=== PATIENT | male | born 1935 | race Caucasian/White ===

== ENCOUNTER 2018-01-05 13:17 | Inpatient (IN) | payer MEDICARE ==
--- NOTE | 2018-01-05 13:32 | ED ---
General Adult HPI - General Chief complaint: Shortness of Breath Stated complaint: SOB Time Seen by Provider: 01/05/18 13:19 Source: patient, EMS, RN notes reviewed, old records reviewed (Transfer records reviewed from [facility].) Mode of arrival: EMS Limitations: no limitations - History of Present Illness Initial comments: Patient is a pleasant 82-year-old male presenting to the emergency Department as a transfer from [facility]. Patient was diagnosed there with CHF. 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 Symptoms do worsen with exertion. Patient states he may have been worse lying down as well. Patient denies ever having any chest discomfort. Patient states he was a little bit sweaty this morning. No fevers. No leg pain or leg swelling. Patient is unclear if there is any previous history of congestive heart failure. - Related Data Allergies Allergy/AdvReac Type Severity Reaction Status Date / Time No Known Allergies Allergy Verified 01/05/18 13:22 Review of Systems ROS Statement: Those systems with pertinent positive or pertinent negative responses have been documented in the HPI. ROS Other: All systems not noted in ROS Statement are negative. Constitutional: Denies: fever Eyes: Denies: eye pain ENT: Denies: ear pain Respiratory: Reports: cough, dyspnea Cardiovascular: Denies: chest pain Endocrine: Denies: fatigue Gastrointestinal: Denies: abdominal pain Genitourinary: Denies: dysuria Musculoskeletal: Denies: back pain Skin: Denies: rash Neurological: Denies: weakness Past Medical History Past Medical History: COPD, Hyperlipidemia, Hypertension, Osteoarthritis (OA) History of Any Multi-Drug Resistant Organisms: None Reported Past Surgical History: Appendectomy, Hernia Repair, Pacemaker Additional Past Surgical History / Comment(s): lithotripsy Past Psychological History: No Psychological Hx Reported Smoking Status: Former smoker Past Alcohol Use History: None Reported Past Drug Use History: None Reported General Exam Limitations: no limitations General appearance: alert, in no apparent distress Head exam: Present: atraumatic Eye exam: Present: normal appearance, PERRL ENT exam: Present: normal oropharynx Neck exam: Present: normal inspection Respiratory exam: Present: rales (Bilateral bases) Cardiovascular Exam: Present: regular rate, normal rhythm, systolic murmur GI/Abdominal exam: Present: soft. Absent: tenderness Extremities exam: Present: normal inspection, other (Left leg brace). Absent: pedal edema, calf tenderness Neurological exam: Present: alert Psychiatric exam: Present: normal affect, normal mood Skin exam: Present: normal color Course Vital Signs 01/05/18 01/05/18 13:18 14:03 Temperature 98.2 F Pulse Rate 82 66 Respiratory 18 18 Rate Blood Pressure 148/86 126/73 O2 Sat by Pulse 95 94 L Oximetry EKG Findings - EKG Comments: EKG Findings:: Paced rhythm at 75. QRS to 30. QT 518. QTC 578. Left axis. Wide-complex QRS. Nonspecific ST-T. Medical Decision Making - Medical Decision Making Patient was updated on results and plan. Case was discussed in detail with Dr. bah, who will admit for hospital call. - Radiology Data Interpreted by me: Chest x-ray reviewed from [facility] does show cardiomegaly and some interstitial increased markings. Disposition Clinical Impression: Congestive heart failure Disposition: ADMITTED IP TO THIS HOSP Is patient prescribed a controlled substance at d/c from ED?: No Referrals: Zohaib Porter MD [Primary Care Provider] - 1-2 days Decision Time: 14:07
[2018-01-05] MEDS ORDERED: ASPIRIN 325 MG TAB PO STA (14:08)
[2018-01-05] MEDS ORDERED: FUROSEMIDE 10 MG/ML 4 ML VIAL IV SCH (14:15)
[2018-01-05] MEDS ORDERED: HYDROcodone/APAP 7.5-325MG 1 EACH TAB PO PRN (15:32)
[2018-01-05] MEDS ORDERED: DEXTROMETHORPHAN PO PRN (15:32)
[2018-01-05] MEDS ORDERED: [UNRECOGNIZED DRUG - OTHER] PO PRN (15:32)
[2018-01-05] MEDS ORDERED: ACETAMINOPHEN PO PRN (15:32)
[2018-01-05] MEDS ORDERED: ALBUTEROL NEBULIZED 2.5 MG/3 ML INHALATION PRN (15:32)
[2018-01-05] MEDS ORDERED: DOXYLAMINE PO PRN (15:32)
[2018-01-05] MEDS ORDERED: PHENYLEPHRINE PO PRN (15:32)
[2018-01-05] MEDS ORDERED: NALOXONE 0.4 MG/ML 1 ML VIAL IV PRN (15:33)
--- NOTE | 2018-01-05 15:45 | P.HPIM ---
History of Present Illness H&P Date: 01/05/18 Chief Complaint: Flulike symptoms 82-year-old male presented to the emergency Department as a transfer from [facility] because of new onset CHF. 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 Symptoms do worsen with exertion as well as lying down. Patient denied ever having any chest discomfort. He stated he mainly felt like it was a flu as he was having nasal congestion, sore throat, cough as well as diaphoresis. No fevers. No leg pain or leg swelling. He felt slightly nauseous this morning but no vomiting. No abdominal pain, diarrhea. No urinary symptoms. At [place] he was worked up with a chest x-ray that showed pulmonary vascular congestion/pulmonary edema, his troponin was slightly elevated at 0.07 , his EKG was paced, and proBNP was elevated at 2100. He was given 324 mg of aspirin as well as Nitropaste and transferred to [facility]. Review of Systems 12 point review of system performed, negative except HPI Past Medical History Past Medical History: COPD, Hyperlipidemia, Hypertension, Osteoarthritis (OA) History of Any Multi-Drug Resistant Organisms: None Reported Past Surgical History: Appendectomy, Hernia Repair, Pacemaker Additional Past Surgical History / Comment(s): lithotripsy Past Psychological History: No Psychological Hx Reported Smoking Status: Former smoker Past Alcohol Use History: None Reported Past Drug Use History: None Reported Medications and Allergies Home Medications Medication Instructions Recorded Confirmed Type Acetaminophen [Tylenol Arthritis] 650 mg PO HS 01/05/18 01/05/18 History Albuterol Inhaler [Ventolin Hfa 2 puff INHALATION RT-Q6H PRN 01/05/18 01/05/18 History Inhaler] Aspirin EC [Ecotrin Low Dose] 81 mg PO DAILY 01/05/18 01/05/18 History Atorvastatin [Lipitor] 10 mg PO DAILY 01/05/18 01/05/18 History Carvedilol [Coreg] 6.25 mg PO BID 01/05/18 01/05/18 History Dm/PE/Acetaminophen/Doxylamine 30 ml PO Q6H PRN 01/05/18 01/05/18 History [Vicks Nyquil Severe Cold-Flu] HYDROcodone/APAP 7.5-325MG [[place] 1 tab PO Q6HR PRN 01/05/18 01/05/18 History 7.5-325] Tiotropium Ollie [Spiriva 1 spray INHALATION RT-DAILY 01/05/18 01/05/18 History Respimat] Allergies Allergy/AdvReac Type Severity Reaction Status Date / Time No Known Allergies Allergy Verified 01/05/18 14:32 Physical Exam Vitals: Vital Signs Temp Pulse Resp BP Pulse Ox 01/05/18 14:03 66 18 126/73 94 L 01/05/18 13:18 98.2 F 82 18 148/86 95 Intake and Output 01/05/18 01/05/18 01/05/18 06:59 14:59 22:59 Other: Weight 89.857 kg Constitutional: No acute distress, conversant, pleasant Eyes:Anicteric sclerae, moist conjunctiva, no lid-lag, PERRLA, ENMT: Oropharynx clear, no erythema, exudates Neck: Supple, FROM, no masses, or JVD, No carotid bruits, No thyromegaly Lungs: Bibasilar crackles, Clear to percussion, Normal respiratory effort, no accessory muscle use Cardiovascular: Heart regular in rate and rhythm, No murmurs, gallops, or rubs, No peripheral edema Abdominal: Soft, Nontender, no guarding, rebound or rigidity, Normoactive bowel sounds, No hepatomegaly, No splenomegaly, No palpable mass Skin: Normal temperature, tone, texture, turgor, no induration, No subcutaneous nodules, No rash, lesions, No ulcers Extremities: No digital cyanosis, No clubbing, Pedal pulses intact and symmetrical, Radial pulses intact and symmetrical, No calf tenderness Psychiatric: Alert and oriented to person, place and time, appropriate affect, intact judgement Neuro: Muscles Strength 5/5 in all 4 extremities, Sensation to light touch grossly present throughout, Cranial nerves II-XII grossly intact, no focal sensory deficits Assessment and Plan Plan: Acute exacerbation of congestive heart failure Unknown type Echocardiogram Cycle troponins Lasix 20 mg IV twice a day Continue Coreg, consider starting SINAN inhibitor Cardiology consult COPD, Hyperlipidemia, Hypertension, Osteoarthritis (OA): All stable Resume home medications DVT prophylaxis Lovenox subcu
--- NOTE | 2018-01-05 16:40 | P.CRDCN ---
History of Present Illness Consult date: 01/05/18 Chief complaint: SOB History of present illness: This is a pleasant 82-year-old gentleman who was transferred from [facility] to [facility] for further evaluation and management of ingested heart failure. The patient presented to the emergency room at [facility] complaining of shortness of breath. The patient stated that the shortness of breath started about 2 days ago. He described exertional dyspnea. No orthopnea or PND. No symptoms of chest pain or chest discomfort, dizziness or lightheadedness, feeling of heart racing or fluttering, or syncope. The patient denies having any fever or chills, but the patient does have nasal congestion. The patient did not have any bilateral lower extremities edema. 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 Beside that he does have hypertension and dyslipidemia. No coronary artery disease or coronary artery vascularization. No history of arrhythmia. At [place] he was worked up with a chest x-ray that showed pulmonary vascular congestion/pulmonary edema, his troponin was slightly elevated at 0.07 , his EKG showed ventricular paced, and proBNP was elevated at 2100. Past Medical History Past Medical History: COPD, Hyperlipidemia, Hypertension, Osteoarthritis (OA) History of Any Multi-Drug Resistant Organisms: None Reported Past Surgical History: Appendectomy, Hernia Repair, Pacemaker Additional Past Surgical History / Comment(s): lithotripsy Past Psychological History: No Psychological Hx Reported Smoking Status: Former smoker Past Alcohol Use History: None Reported Past Drug Use History: None Reported Medications and Allergies Home Medications Medication Instructions Recorded Confirmed Type Acetaminophen [Tylenol Arthritis] 650 mg PO HS 01/05/18 01/05/18 History Albuterol Inhaler [Ventolin Hfa 2 puff INHALATION RT-Q6H PRN 01/05/18 01/05/18 History Inhaler] Aspirin EC [Ecotrin Low Dose] 81 mg PO DAILY 01/05/18 01/05/18 History Atorvastatin [Lipitor] 10 mg PO DAILY 01/05/18 01/05/18 History Carvedilol [Coreg] 6.25 mg PO BID 01/05/18 01/05/18 History Dm/PE/Acetaminophen/Doxylamine 30 ml PO Q6H PRN 01/05/18 01/05/18 History [Vicks Nyquil Severe Cold-Flu] HYDROcodone/APAP 7.5-325MG [[place] 1 tab PO Q6HR PRN 01/05/18 01/05/18 History 7.5-325] Tiotropium [place] [Spiriva 1 spray INHALATION RT-DAILY 01/05/18 01/05/18 History Respimat] Allergies Allergy/AdvReac Type Severity Reaction Status Date / Time No Known Allergies Allergy Verified 01/05/18 14:32 Physical Exam Vitals: Vital Signs Temp Pulse Resp BP Pulse Ox 01/05/18 16:17 61 18 142/79 94 L 01/05/18 14:03 66 18 126/73 94 L 01/05/18 13:18 98.2 F 82 18 148/86 95 Intake and Output 01/05/18 01/05/18 01/05/18 06:59 14:59 22:59 Output Total 250 Balance -250 Output: Urine 250 Other: # Voids 1 Weight 89.857 kg - Constitutional General appearance: mild distress - Respiratory Respiratory: bilateral: rales - Cardiovascular Rhythm: regular Heart sounds: normal: S1, S2 Results Current Medications Generic Name Dose Route Start Last Admin Trade Name Freq PRN Reason Stop Dose Admin Hydrocodone Bitart/Acetaminophen 1 each 01/05/18 15:32 [place] 7.5-325 PO Q6HR PRN Pain Albuterol Sulfate 2 puff 01/05/18 15:32 Ventolin Hfa Inhaler INHALATION RT-Q6H PRN Shortness Of Breath Aspirin 325 mg 01/06/18 09:00 Aspirin PO DAILY [facility] Atorvastatin Calcium 10 mg 01/06/18 09:00 Lipitor PO DAILY [facility] Carvedilol 6.25 mg 01/05/18 21:00 Coreg PO BID [facility] Enoxaparin Sodium 40 mg 01/06/18 09:00 Lovenox SQ DAILY [facility] Furosemide 20 mg 01/05/18 21:00 Lasix IV Q12HR [facility] Naloxone HCl 0.2 mg 01/05/18 15:33 Narcan IV Q2M PRN Opioid Reversal Nitroglycerin 1 inch 01/05/18 18:00 Nitro-Bid Oint TOPICAL QID LUKASZ Non-Formulary Medication 650 mg 01/05/18 21:00 Acetaminophen [Tylenol Arthritis] PO HS [facility] Non-Formulary Medication 30 ml 01/05/18 15:32 Dm/Pe/Acetaminophen/Doxylamine [Vicks Nyquil Severe Cold-Flu] PO Q6H PRN Cold Symptoms Non-Formulary Medication 1 spray 01/06/18 08:00 Tiotropium [place] [Spiriva Respimat] INHALATION RT-DAILY LUKASZ Sodium Chloride 10 ml 01/05/18 21:00 Saline Flush IV BID LUKASZ Intake and Output 01/05/18 01/05/18 01/05/18 06:59 14:59 22:59 Output Total 250 Balance -250 Output: Urine 250 Other: # Voids 1 Weight 89.857 kg Patient Weight 01/06/18 06:59 Weight 89.857 kg Assessment and Plan Assessment: Assessment #1 congestive heart failure exacerbation and known if it's due to systolic or diastole dysfunction at this point. #2 mildly abnormal cardiac enzymes. The patient did not have any symptoms of chest pain or chest discomfort. #3 status post permanent pacemaker implantation #4 hypertension #5 dyslipidemia Plan #1 agree to keep the patient on the current dose of Lasix IV. #2 monitor the kidney function and electrolytes and weigh daily #3 we'll obtain an echocardiogram was Doppler to assess the LV function #4 obtain serial cardiac enzymes #5 acute coronary syndrome to be ruled out as an etiology for the congestive heart failure #6 follow-up with the patient. Thank you for allowing us participate in his care and we'll continue following up with the patient
[2018-01-05 18:56] VITALS: BMI 23.5
[2018-01-05] MEDS: NITROGLYCERIN OINT 1 INCH/GM PACKET TOPICAL SCH ×2 (20:30→20:39)
[2018-01-05] MEDS: ACETAMINOPHEN TAB 325 MG TAB PO SCH (20:38)
[2018-01-05] MEDS: CARVEDILOL 6.25 MG TAB PO SCH (20:38)
[2018-01-05] MEDS: FUROSEMIDE 10 MG/ML 2 ML VIAL IV SCH (20:38)
[2018-01-05] MEDS: ENOXAPARIN 40 MG/0.4 ML SYRINGE SQ STA ×2 (20:39→20:43)
[2018-01-06 06:03] LABS: Basophils % (A) 1 %; Eosinophils # (A) 0.2 k/uL (0-0.7); Eosinophils % (A) 3 %; HCT 43.2 % (39.0-53.0); HGB 14.3 gm/dL (13.0-17.5); Lymphocytes # (A) 0.6 k/uL (1.0-4.8); Lymphocytes % (A) 10 %; MCH 30.9 pg (25.0-35.0); MCV 93.7 fL (80.0-100.0); Mean Platelet Volume 7.7; Monocytes # (A) 0.5 k/uL (0-1.0); Monocytes % (A) 7 %; Neutrophils # (A) 4.8 k/uL (1.3-7.7); Neutrophils % (A) 77 %; Platelet Count 171 k/uL (150-450); RBC 4.61 m/uL (4.30-5.90); RDW 13.1 % (11.5-15.5); WBC 6.2 k/uL (3.8-10.6)
[2018-01-06 06:19] LABS: Anion Gap 7 mmol/L; Blood Urea Nitrogen 25 mg/dL (9-20); Calcium 8.4 mg/dL (8.4-10.2); Carbon Dioxide 28 mmol/L (22-30); Chloride 106 mmol/L (98-107); Glucose 104 mg/dL (74-99); Potassium 4.2 mmol/L (3.5-5.1); Sodium 141 mmol/L (137-145)
[2018-01-06] MEDS: IPRATROPIUM 0.5 MG/2.5 ML NEBU INHALATION SCH ×4 (07:40→19:05)
[2018-01-06] MEDS: ENOXAPARIN 40 MG/0.4 ML SYRINGE SQ SCH (08:32)
[2018-01-06] MEDS: NITROGLYCERIN OINT 1 INCH/GM PACKET TOPICAL SCH ×4 (08:33→20:05)
[2018-01-06] MEDS: CARVEDILOL 6.25 MG TAB PO SCH ×2 (08:33→20:05)
[2018-01-06] MEDS: FUROSEMIDE 10 MG/ML 2 ML VIAL IV SCH ×2 (08:33→20:05)
[2018-01-06] MEDS: ATORVASTATIN 10 MG TAB PO SCH (08:33)
[2018-01-06] MEDS ORDERED: ASPIRIN 325 MG TAB PO SCH (09:00)
--- NOTE | 2018-01-06 10:57 | P.PN ---
Subjective Progress Note Date: 01/06/18 Principal diagnosis: CHF Feeling better, no chest pain or shortness of breath. Objective - Vital Signs Vital signs: Vital Signs Temp 96.3 F L 01/06/18 08:31 Pulse 60 01/06/18 08:31 Resp 18 01/06/18 08:31 BP 116/63 01/06/18 08:31 Pulse Ox 92 L 01/06/18 08:31 Intake & Output 01/05/18 01/06/18 01/06/18 18:59 06:59 18:59 Intake Total 120 Output Total 450 1680 400 Balance -450 -1410 -280 Weight 89.857 kg 89.3 kg Intake: Oral 120 Output: Urine 450 1680 400 Other: Voiding Method Urinal Urinal # Voids 1 1 0 # Bowel Movements 0 - Exam Constitutional: No acute distress, conversant, pleasant Eyes:Anicteric sclerae, moist conjunctiva, no lid-lag, PERRLA, ENMT: Oropharynx clear, no erythema, exudates Neck: Supple, FROM, no masses, or JVD, No carotid bruits, No thyromegaly Lungs: Bibasilar crackles, Clear to percussion, Normal respiratory effort, no accessory muscle use Cardiovascular: Heart regular in rate and rhythm, No murmurs, gallops, or rubs, No peripheral edema Abdominal: Soft, Nontender, no guarding, rebound or rigidity, Normoactive bowel sounds, No hepatomegaly, No splenomegaly, No palpable mass Skin: Normal temperature, tone, texture, turgor, no induration, No subcutaneous nodules, No rash, lesions, No ulcers Extremities: No digital cyanosis, No clubbing, Pedal pulses intact and symmetrical, Radial pulses intact and symmetrical, No calf tenderness Psychiatric: Alert and oriented to person, place and time, appropriate affect, intact judgement Neuro: Muscles Strength 5/5 in all 4 extremities, Sensation to light touch grossly present throughout, Cranial nerves II-XII grossly intact, no focal sensory deficits - Labs CBC & Chem 7: 01/06/18 05:15 01/06/18 05:15 Labs: Abnormal Lab Results - Last 24 Hours (Table) 01/05/18 01/05/18 01/06/18 Range/Units 17:28 23:16 05:15 Lymphocytes # 0.6 L (1.0-4.8) k/uL BUN (9-20) mg/dL Glucose (74-99) mg/dL Troponin I 0.059 H* 0.067 H* (0.000-0.034) ng/mL 01/06/18 01/06/18 Range/Units 05:15 05:15 Lymphocytes # (1.0-4.8) k/uL BUN 25 H (9-20) mg/dL Glucose 104 H (74-99) mg/dL Troponin I 0.069 H* (0.000-0.034) ng/mL Assessment and Plan Plan: Acute exacerbation of congestive heart failure Unknown type Awaiting echocardiogram Troponins negative Lasix 20 mg IV twice a day Continue Coreg, consider starting SINAN inhibitor based on echo result Seen by cardiology COPD, Hyperlipidemia, Hypertension, Osteoarthritis (OA): All stable Resume home medications DVT prophylaxis Lovenox subcu
--- NOTE | 2018-01-06 14:10 | P.PN ---
Subjective Progress Note Date: 01/06/18 This is a pleasant 82-year-old gentleman who was transferred from [facility] to [facility] for further evaluation and treatment of congestive heart failure. He has a known history of prior permanent pacemaker implantation in [facility], hypertension and dyslipidemia. The patient presented to the emergency room [facility] complaining of shortness of breath. Chest x-ray at that time showed pulmonary vascular congestion/pulmonary edema. His troponin was slightly elevated at 0.07 and his EKG showed ventricular paced rhythm. NT proBNP was elevated at 2100. Patient stated that the shortness of breath started about 2 days prior. He described having exertional dyspnea but denies orthopnea or PND. No complaints of chest pain or discomfort, dizziness or lightheadedness or palpitations. Additional troponins drawn here came back at 0.059, 0.067 and 0.069. Laboratory values from this morning show a BUN of 25 and creatinine of 0.9. Upon examination, patient is resting comfortably in bed. He verbalizes his breathing is much better today. He has not been up out of bed much today but feels better at rest. Patient is lying flat in bed with no orthopnea. Objective - Vital Signs Vital signs: Vital Signs Temp 96.3 F L 01/06/18 08:31 Pulse 60 01/06/18 08:31 Resp 18 01/06/18 08:31 BP 116/63 01/06/18 08:31 Pulse Ox 92 L 01/06/18 08:31 Intake & Output 01/05/18 01/06/18 01/06/18 18:59 06:59 18:59 Intake Total 120 Output Total 450 1680 400 Balance -450 -1680 -280 Weight 89.857 kg 89.3 kg Intake: Oral 120 Output: Urine 450 1680 400 Other: Voiding Method Urinal Urinal # Voids 1 1 0 # Bowel Movements 0 - Exam PHYSICAL EXAMINATION: HEENT: Head is atraumatic, normocephalic. Pupils equal, round. Neck is supple. There is no elevated jugular venous pressure. HEART EXAMINATION: Heart sounds regular, S1 and S2 normal. No murmur or gallop heard. CHEST EXAMINATION: Lungs reveal faint crackles to bilateral bases. No chest wall tenderness is noted on palpation or with deep breathing. ABDOMEN: Soft, nontender. Bowel sounds are heard. No organomegaly noted. EXTREMITIES: 2+ peripheral pulses with no evidence of peripheral edema and no calf tenderness noted. NEUROLOGIC patient is awake, alert and oriented x3. . - Labs CBC & Chem 7: 01/06/18 05:15 01/06/18 05:15 Labs: Abnormal Lab Results - Last 24 Hours (Table) 01/05/18 01/05/18 01/06/18 Range/Units 17:28 23:16 05:15 Lymphocytes # 0.6 L (1.0-4.8) k/uL BUN (9-20) mg/dL Glucose (74-99) mg/dL Troponin I 0.059 H* 0.067 H* (0.000-0.034) ng/mL 01/06/18 01/06/18 Range/Units 05:15 05:15 Lymphocytes # (1.0-4.8) k/uL BUN 25 H (9-20) mg/dL Glucose 104 H (74-99) mg/dL Troponin I 0.069 H* (0.000-0.034) ng/mL Assessment and Plan Assessment: #1 congestive heart failure exacerbation and known if it's due to systolic or diastole dysfunction at this point, awaiting echocardiogram results. #2 mildly abnormal cardiac enzymes. The patient did not have any symptoms of chest pain or chest discomfort. #3 status post permanent pacemaker implantation #4 hypertension #5 dyslipidemia Plan: From cardiology's perspective, continue Lasix 20 mg IV twice a day. We'll review echocardiogram. Continue aspirin at 81 mg by mouth daily, carvedilol 6.25 mg by mouth twice a day atorvastatin 10 mg by mouth daily. Further recommendations to follow. SCIENTIFIC INFORMATICS ANALYST note has been reviewed, I agree with a documented findings and plan of care. Patient was seen and examined.
--- NOTE | 2018-01-06 14:17 | ECHOF ---
Referral Reason:chf MEASUREMENTS -------- HEIGHT: 195.6 cm WEIGHT: 88.9 kg BP: 133/79 IVSd: 1.5 cm (0.6 - 1.1) LVIDd: 6.0 cm (3.9 - 5.3) LVPWd: 1.4 cm (0.6 - 1.1) IVSs: 1.6 cm LVIDs: 5.1 cm LVPWs: 1.7 cm RVIDd: 4.5 cm (< 3.3) LAESV Index (A-L): 63.65 ml/m Ao Diam: 3.7 cm (2.0 - 3.7) LA Diam: 5.9 cm (2.7 - 3.8) AV Cusp: 2.3 cm (1.5 - 2.6) EPSS: 1.3 cm MV E [place]: 0.90 m/s MV DecT: 229 ms MV A [place]: 0.00 m/s MV E/A Ratio: 932.89 RAP: 5.00 mmHg RVSP: 65.02 mmHg MV EF SLOPE: 105.59 mm/s (70 - 150) MV EXCURSION: 2.46 cm (> 18.000) FINDINGS -------- Paced rhythm. This was a technically good study. The left ventricular size is normal. There is mild concentric left ventricular hypertrophy. Overa ll left ventricular systolic function is severely impaired with, an EF between 25 - 30 %. Septal wa ll motion is delayed, and consistent with ventricular pacing. Inferior Hypokinesis Septal Hypokin esis The right ventricle is severely enlarged. LA is severely dilated >40 ml/m2 The right atrium is markedly enlarged. Aortic valve is trileaflet and is mildly thickened. There is no evidence of aortic regurgitation. There is no evidence of aortic stenosis. The mitral valve leaflets are moderately thickened. Mild mitral annular calcification present. Mo [id number] mitral regurgitation is present. Moderate to severe tricuspid regurgitation present. There is moderate pulmonary hypertension. The right ventricular systolic pressure, as measured by Doppler, is 65.02mmHg. Trace/mild (physiologic) pulmonic regurgitation. The aortic root size is normal. Normal inferior vena cava with normal inspiratory collapse consistent with estimated right atrial pre ssure of 5 mmHg. There is no pericardial effusion. CONCLUSIONS -------- 1. Paced rhythm. 2. This was a technically good study. 3. The left ventricular size is normal. 4. There is mild concentric left ventricular hypertrophy. 5. Overall left ventricular systolic function is severely impaired with, an EF between 25 - 30 %. 6. Septal wall motion is delayed, and consistent with ventricular pacing. 7. Inferior Hypokinesis 8. Septal Hypokinesis 9. The right ventricle is severely enlarged. 10. LA is severely dilated >40 ml/m2 11. The right atrium is markedly enlarged. 12. Aortic valve is trileaflet and is mildly thickened. 13. The mitral valve leaflets are moderately thickened. 14. Mild mitral annular calcification present. 15. [id number] mitral regurgitation is present. 16. Moderate to severe tricuspid regurgitation present. 17. There is moderate pulmonary hypertension. 18. The right ventricular systolic pressure, as measured by Doppler, is 65.02mmHg. 19. Trace/mild (physiologic) pulmonic regurgitation. 20. The aortic root size is normal. 21. There is no pericardial effusion. HUMAN SERVICE SPECIALIST: Girma Sutton RDCS
[2018-01-06] MEDS: ACETAMINOPHEN TAB 325 MG TAB PO SCH (20:05)
--- NOTE | 2018-01-07 08:34 | P.PN ---
Subjective Progress Note Date: 01/07/18 Principal diagnosis: CHF secondary to systolic dysfunction This is a pleasant 82-year-old gentleman who was transferred from [facility] to [facility] for further evaluation and management of ingested heart failure. The patient presented to the emergency room at [facility] complaining of shortness of breath. The patient stated that the shortness of breath started about 2 days ago. He described exertional dyspnea. No orthopnea or PND. No symptoms of chest pain or chest discomfort, dizziness or lightheadedness, feeling of heart racing or fluttering, or syncope. The patient denies having any fever or chills, but the patient does have nasal congestion. The patient did not have any bilateral lower extremities edema. The patient does have a cardiac history and he has a permanent pacemaker implantation and he does follow with a cement side laster out of [place], [place]. Beside that he does have hypertension and dyslipidemia. No coronary artery disease or coronary artery vascularization. No history of arrhythmia. At [place] he was worked up with a chest x-ray that showed pulmonary vascular congestion/pulmonary edema, his troponin was slightly elevated at 0.07, his EKG showed ventricular paced, and proBNP was elevated at 2100. On follow-up with the patient today, he is feeling better internal shortness of breath. No chest pain or chest discomfort. The echo showed severe cardiomyopathy I am going to add lisinopril and Aldactone. Switch the patient from Lasix IV to Lasix by mouth. Anticipate discharge later on today. Objective - Vital Signs Vital signs: Vital Signs Temp 97.0 F L 01/07/18 04:00 Pulse 63 01/07/18 04:00 Resp 17 01/07/18 04:00 BP 132/75 01/07/18 04:00 Pulse Ox 93 L 01/07/18 04:00 Intake & Output 01/06/18 01/07/18 01/07/18 18:59 06:59 18:59 Intake Total 360 240 Output Total 1000 1140 Balance -640 -1140 240 Weight 89 kg Intake: Oral 360 240 Output: Urine 1000 1140 Other: Voiding Method Urinal Urinal # Voids 0 1 # Bowel Movements 0 - Constitutional General appearance: Present: no acute distress - Respiratory Respiratory: bilateral: CTA - Cardiovascular Rhythm: regular Heart sounds: normal: S1, S2 - Labs CBC & Chem 7: 01/06/18 05:15 01/06/18 05:15 Assessment and Plan Assessment: Assessment #1 congestive heart failure exacerbation and known if it's due to systolic or diastole dysfunction at this point. #2 mildly abnormal cardiac enzymes. The patient did not have any symptoms of chest pain or chest discomfort. #3 status post permanent pacemaker implantation #4 hypertension #5 dyslipidemia Plan #1 switch the patient from Lasix IV to Lasix by mouth. #2 add Aldactone and lisinopril #3 possible discharge later on today
[2018-01-07] MEDS: IPRATROPIUM 0.5 MG/2.5 ML NEBU INHALATION SCH ×2 (08:51→13:56)
[2018-01-07 08:52] VITALS: PULSE 66
[2018-01-07 08:53] VITALS: RESP 16; TEMP 97.8
[2018-01-07] MEDS ORDERED: LISINOPRIL 2.5 MG TAB PO SCH (09:00)
[2018-01-07] MEDS ORDERED: SPIRONOLACTONE 25 MG TAB PO SCH (09:00)
[2018-01-07] MEDS ORDERED: ASPIRIN 81 MG PO SCH (09:00)
[2018-01-07] MEDS ORDERED: FUROSEMIDE 40 MG TAB PO SCH (09:00)
[2018-01-07] MEDS: ATORVASTATIN 10 MG TAB PO SCH (09:45)
[2018-01-07] MEDS: CARVEDILOL 6.25 MG TAB PO SCH (09:45)
[2018-01-07] MEDS: NITROGLYCERIN OINT 1 INCH/GM PACKET TOPICAL SCH ×2 (09:45→11:48)
[2018-01-07] MEDS: ENOXAPARIN 40 MG/0.4 ML SYRINGE SQ SCH (09:49)
--- NOTE | 2018-01-07 09:54 | P.DS ---
Providers Date of admission: 01/05/18 14:08 Expected date of discharge: 01/07/18 Attending physician: oSfia Groves DO Consults: 01/05/18 14:08 Consult Physician Routine Consulting Provider: Toño Butt Consult Reason/Comments: chf Do you want consulting provider notified?: Yes Primary care physician: Zohaib Porter MD Hospital Course: 82-year-old male presented to the emergency Department as a transfer from [facility] because of new onset CHF. 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 Symptoms do worsen with exertion as well as lying down. Patient denied ever having any chest discomfort. He stated he mainly felt like it was a flu as he was having nasal congestion, sore throat, cough as well as diaphoresis. No fevers. No leg pain or leg swelling. He felt slightly nauseous this morning but no vomiting. No abdominal pain, diarrhea. No urinary symptoms. At [place] he was worked up with a chest x-ray that showed pulmonary vascular congestion/pulmonary edema, his troponin was slightly elevated at 0.07 , his EKG was paced, and proBNP was elevated at 2100. He was given 324 mg of aspirin as well as Nitropaste and transferred to [facility]. Here at [facility] trops were cycled and were found to be slightly elevated at 0.059. Patient was seen by cardiology who recommended obtaining an echocardiogram. The echo showed low ejection fraction 25-30%. Patient was started on an SINAN inhibitor, Lasix and Aldactone by cardiology. Symptomatically was feeling much better throughout admission. Today he was cleared by cardiology for discharge. Patient will be discharged home in stable condition. He was instructed to follow-up with his primary care physician as well as the buttermaker continuous churn for further workup in regards to new onset congestive heart failure. Discharge diagnoses Acute exacerbation of chronic systolic congestive heart failure, new onset Pulmonary edema Slightly elevated troponin, unclear significance Plan - Discharge Summary Discharge Rx Participant: No New Discharge Prescriptions: New Furosemide [Lasix] 40 mg PO DAILY #30 tab Lisinopril [Zestril] 2.5 mg PO DAILY #30 tab Spironolactone [Aldactone] 25 mg PO DAILY #30 tab Continue Albuterol Inhaler [Ventolin Hfa Inhaler] 2 puff INHALATION RT-Q6H PRN PRN Reason: Shortness Of Breath HYDROcodone/APAP 7.5-325MG [[place] 7.5-325] 1 tab PO Q6HR PRN PRN Reason: Pain Carvedilol [Coreg] 6.25 mg PO BID Atorvastatin [Lipitor] 10 mg PO DAILY Aspirin EC [Ecotrin Low Dose] 81 mg PO DAILY Dm/PE/Acetaminophen/Doxylamine [[place] Nyquil Severe Cold-Flu] 30 ml PO Q6H PRN PRN Reason: Cold Symptoms Tiotropium [place] [Spiriva Respimat] 1 spray INHALATION RT-DAILY Acetaminophen [Tylenol Arthritis] 650 mg PO HS Discharge Medication List Acetaminophen [Tylenol Arthritis] 650 mg PO HS 01/05/18 [History] Albuterol Inhaler [Ventolin Hfa Inhaler] 2 puff INHALATION RT-Q6H PRN 01/05/18 [ History] Aspirin EC [Ecotrin Low Dose] 81 mg PO DAILY 01/05/18 [History] Atorvastatin [Lipitor] 10 mg PO DAILY 01/05/18 [History] Carvedilol [Coreg] 6.25 mg PO BID 01/05/18 [History] Dm/PE/Acetaminophen/Doxylamine [[place] Nyquil Severe Cold-Flu] 30 ml PO Q6H PRN 01/05/18 [History] HYDROcodone/APAP 7.5-325MG [[place] 7.5-325] 1 tab PO Q6HR PRN 01/05/18 [History] Tiotropium [place] [Spiriva Respimat] 1 spray INHALATION RT-DAILY 01/05/18 [ History] Furosemide [Lasix] 40 mg PO DAILY #30 tab 01/07/18 [Rx] Lisinopril [Zestril] 2.5 mg PO DAILY #30 tab 01/07/18 [Rx] Spironolactone [Aldactone] 25 mg PO DAILY #30 tab 01/07/18 [Rx] Follow up Appointment(s)/Referral(s): Toño Butt MD [STAFF PHYSICIAN] - 1 Week Zohaib Porter MD [Primary Care Provider] - 01/15/18 8:15 am (Saturday)
[2018-01-07 12:17] VITALS: BP 123/75
== END 2018-01-07 14:51 | disposition home health service (06) | DRG 293 ==
LOC: EC 13:17 → 6SEL 14:08
PROVIDERS: ADMIT Internal Medicine; ATTEND Internal Medicine
DX: I11.0 Hypertensive heart disease with heart failure (principal); I50.23 Acute on chronic systolic (congestive) heart failure; E78.5 Hyperlipidemia, unspecified; I42.9 Cardiomyopathy, unspecified; J44.9 Chronic obstructive pulmonary disease, unspecified; M19.90 Unspecified osteoarthritis, unspecified site; Z87.891 Personal history of nicotine dependence; Z95.0 Presence of cardiac pacemaker; R74.8 Abnormal levels of other serum enzymes; Z79.82 Long term (current) use of aspirin; Z79.899 Other long term (current) drug therapy
CPT/HCPCS: 80048; 83735; 84100; 84484; 85025; 93005; 93306; 94640; 94760; 96374; 99285

== ENCOUNTER 2018-11-09 18:19 | Observation (INO) | payer MEDICARE ==
--- NOTE | 2018-11-09 18:59 | ED ---
General Adult HPI - General Chief complaint: Shortness of Breath Stated complaint: COPD, CHF Time Seen by Provider: 11/09/18 18:28 Source: patient Mode of arrival: ambulatory Limitations: no limitations - History of Present Illness Initial comments: 83-year-old male patient presents to the emergency department as a transfer from [facility] for evaluation of CHF exacerbation. Patient states he had acute onset of shortness of breath while getting ready for hindu this morning states he was attempting to get dressed when he started having trouble breathing. Patient does admit a history of CHF. Does admit to being noncompliant with his Lasix dosing. States takes 1 tablet every 2-3 days. Patient denies any chest pain with this. Denies any nausea, vomiting, or sweats. Patient states he was seen and evaluated at the emergency department there was given Lasix and was feeling better. He was discharged however he did experience a fall outside the ER. Nursing staff reported the patient's lips were blue and he was reporting increased shortness of breath so they brought him back in and transferred here for further evaluation. Patient states he is currently feeling well. Denies any current shortness of breath. Patient denies any recent rash, fever, chills, cough, abdominal pain, diarrhea, constipation, back pain, numbness, tingling, dizziness, weakness, hematuria, dysuria, urinary urgency, urinary frequency, headache, visual changes, or any other complaints. - Related Data Home Medications Medication Instructions Recorded Confirmed Acetaminophen [Tylenol Arthritis] 650 mg PO HS 01/05/18 11/09/18 Albuterol Inhaler [Ventolin Hfa 2 puff INHALATION RT-Q6H PRN 01/05/18 11/09/18 Inhaler] Aspirin EC [Ecotrin Low Dose] 81 mg PO DAILY 01/05/18 11/09/18 Atorvastatin [Lipitor] 10 mg PO HS 01/05/18 11/09/18 Carvedilol [Coreg] 6.25 mg PO BID 01/05/18 11/09/18 HYDROcodone/APAP 7.5-325MG [[place] 1 tab PO Q6HR PRN 01/05/18 11/09/18 7.5-325] Tiotropium [place] [Spiriva 1 spray INHALATION RT-DAILY 01/05/18 11/09/18 Respimat] Previous Rx's Medication Instructions Recorded Furosemide [Lasix] 40 mg PO DAILY #30 tab 01/07/18 Lisinopril [Zestril] 2.5 mg PO DAILY #30 tab 01/07/18 Allergies Allergy/AdvReac Type Severity Reaction Status Date / Time No Known Allergies Allergy Verified 11/09/18 18:45 Review of Systems ROS Statement: Those systems with pertinent positive or pertinent negative responses have been documented in the HPI. ROS Other: All systems not noted in ROS Statement are negative. Past Medical History Past Medical History: COPD, Hyperlipidemia, Hypertension, Osteoarthritis (OA) History of Any Multi-Drug Resistant Organisms: None Reported Past Surgical History: Appendectomy, Hernia Repair, Pacemaker Additional Past Surgical History / Comment(s): lithotripsy Type of Cardiac Device: Permanent Pacemaker Device Placement Date:: 2016 Past Psychological History: No Psychological Hx Reported Smoking Status: Former smoker Past Alcohol Use History: None Reported Past Drug Use History: None Reported General Exam Limitations: no limitations General appearance: alert, in no apparent distress, other (This well-developed, well-nourished elderly male patient in no acute distress. Vital signs upon presentation are temperature 98.2F, pulse 73, respirations 18, blood pressure 130/79, pulse ox 98% on 2 L.) Eye exam: Present: normal appearance, PERRL, EOMI. Absent: scleral icterus, conjunctival injection, periorbital swelling ENT exam: Present: normal exam, normal oropharynx, mucous membranes moist Respiratory exam: Present: normal lung sounds bilaterally. Absent: respiratory distress, wheezes, rales, rhonchi, stridor Cardiovascular Exam: Present: regular rate, normal rhythm, normal heart sounds. Absent: systolic murmur, diastolic murmur, rubs, gallop, clicks GI/Abdominal exam: Present: soft, normal bowel sounds. Absent: distended, tenderness, guarding, rebound, rigid Neurological exam: Present: alert, oriented X3, CN II-XII intact Psychiatric exam: Present: normal affect, normal mood Skin exam: Present: warm, dry, intact, normal color. Absent: rash Course Vital Signs 11/09/18 18:25 Temperature 98.2 F Pulse Rate 73 Respiratory 18 Rate Blood Pressure 130/79 O2 Sat by Pulse 98 Oximetry EKG Findings - EKG Comments: EKG Findings:: EKG obtained at 1840 shows ventricular paced rhythm with occasional PVCs. Ventricular 65, QRS duration 242, QTc 550, QTC 572. No evidence of ST elevation or depression. Medical Decision Making - Medical Decision Making 83-year-old male patient presents to the emergency department today as a transfer from [facility] for CHF exacerbation. Physical examination revealed clear lung sounds. Patient is resting comfortable, currently breathing without difficulty. He is on 2 L of oxygen. Packet is reviewed from [facility] shows elevated BNP at 1020. Trop 0.08. Remainder of labs are unremarkable. X-ray of the chest did show mild pulmonary vascular congestion consistent with early CHF. Patient did have 1075ml of urine output at their facility. He will be admitted for continued IV lasix and evaluation by cardiology. We will repeat trops. Patient is aware of and agrees with plan. Disposition Clinical Impression: CHF exacerbation Disposition: ADMITTED IP TO THIS HOSP Condition: Serious Referrals: Zohaib Porter MD [Primary Care Provider] - 1-2 days Decision to Admit Reason: Admit from EC Decision Date: 11/09/18 Decision Time: 19:02
[2018-11-09] MEDS ORDERED: ALBUTEROL NEBULIZED 2.5 MG/3 ML INHALATION PRN (19:04)
[2018-11-09] MEDS ORDERED: HYDROcodone/APAP 7.5-325MG 1 EACH TAB PO PRN (19:04)
[2018-11-09 21:00] VITALS: BMI 22.5
[2018-11-09] MEDS ORDERED: ATORVASTATIN 10 MG TAB PO SCH (21:00)
[2018-11-09] MEDS ORDERED: ACETAMINOPHEN TAB 325 MG TAB PO SCH (21:00)
[2018-11-09] MEDS: CARVEDILOL 6.25 MG TAB PO SCH (21:12)
[2018-11-09] MEDS: FUROSEMIDE 10 MG/ML 4 ML VIAL IV SCH (21:12)
--- NOTE | 2018-11-09 22:36 | P.HPIM ---
History of Present Illness H&P Date: 11/09/18 The patient is an 83 yo M with a PMH of systolic CHF (EF 25-30%) s/p AICD placement, COPD, and HLD presented to the ED as a transfer from [facility]. The patient had presented there earlier today for shortness of breath that started as he was getting ready for holiness this am. He denied having chest pain, palpitations, nausea, vomiting, or diaphoresis. He reported that he has been non-compliant with his lasix dosing. He was reportedly evaluated in the ED at [facility], was believed to be in fluid overload, was given doses of IV lasix after which he made 1 L of urine and had improvement of his symptoms and was subsequently discharged. As he was leaving the ED parking lot, he developed worsening shortness of breath and that his legs became weak and he fell and was unable to get back up. It was reported that his lips were blue and he was in respiratory distress. He was subsequently brought back into the ED and was transferred here. At time of the interview, the patient reports that his breathing has returned to baseline. He further denied any additional complaints including chest pain, nausea, vomiting, diaphoresis, LE pain, orthopnea, PND, or palpitations. He also denied fever, chills, cough, abdominal pain, or diarrhea. He underwent an extensive evaluation in the [facility] ED with EKG showing V- paced rhythm @ 65 bpm. Laboratory evaluation revealed a WBC count of 7.5, Hgb 15, platelets 108, troponin 0.08, T-bili 3.8, BUN 19, and Cr 1.0. Review of Systems Pertinent positives and negatives as discussed in HPI, a complete review of systems was performed and all other systems are negative. Past Medical History Past Medical History: COPD, Hyperlipidemia, Hypertension, Osteoarthritis (OA) History of Any Multi-Drug Resistant Organisms: None Reported Past Surgical History: Appendectomy, Hernia Repair, Pacemaker Additional Past Surgical History / Comment(s): lithotripsy Past Anesthesia/Blood Transfusion Reactions: No Reported Reaction Type of Cardiac Device: Permanent Pacemaker Device Placement Date:: 2016 Past Psychological History: No Psychological Hx Reported Smoking Status: Former smoker Past Alcohol Use History: None Reported Past Drug Use History: None Reported Medications and Allergies Home Medications Medication Instructions Recorded Confirmed Type Acetaminophen [Tylenol Arthritis] 650 mg PO HS 01/05/18 11/09/18 History Albuterol Inhaler [Ventolin Hfa 2 puff INHALATION RT-Q6H PRN 01/05/18 11/09/18 History Inhaler] Aspirin EC [Ecotrin Low Dose] 81 mg PO DAILY 01/05/18 11/09/18 History Atorvastatin [Lipitor] 10 mg PO HS 01/05/18 11/09/18 History Carvedilol [Coreg] 6.25 mg PO BID 01/05/18 11/09/18 History HYDROcodone/APAP 7.5-325MG [[place] 1 tab PO Q6HR PRN 01/05/18 11/09/18 History 7.5-325] Tiotropium [place] [Spiriva 1 spray INHALATION RT-DAILY 01/05/18 11/09/18 History Respimat] Furosemide [Lasix] 40 mg PO DAILY #30 tab 01/07/18 11/09/18 Rx Lisinopril [Zestril] 2.5 mg PO DAILY #30 tab 01/07/18 11/09/18 Rx Allergies Allergy/AdvReac Type Severity Reaction Status Date / Time No Known Allergies Allergy Verified 11/09/18 18:45 Physical Exam Vitals: Vital Signs Temp Pulse Pulse Resp BP BP Pulse Ox 11/09/18 20:10 98.0 F 61 18 121/72 98 11/09/18 20:00 97.5 F L 66 18 117/63 96 11/09/18 18:25 98.2 F 73 18 130/79 98 11/09/18 18:20 20 Intake and Output 11/09/18 11/09/18 11/09/18 06:59 14:59 22:59 Intake Total 120 Balance 120 Intake: Oral 120 Other: Voiding Method Toilet Urinal Weight 88.451 kg General: non toxic, no distress, appears at stated age, normal weight Derm: no unusual rashes/lesions no unusual ecchymoses, warm, dry Head: atraumatic, normocephalic, symmetric Eyes: EOMI, no lid lag, anicteric sclera, pupils equal round reactive to light ENT: Nose and ears atraumatic, no thrush, no pharyngeal erythema Neck: No thyromegaly, no cervical lymphadenopathy, trachea midline, supple Mouth: no lip lesion, mucus membranes moist Cardiovascular: S1S2 reg, no murmur, positive posterior tibial pulse bilateral, no edema, capillary refill less than 2 seconds Lungs: Bilateral rales to mid-lung, no ronchi or coarse breath sounds, no accessory muscle use Abdominal: soft, nontender to palpation, no guarding, no appreciable organomegaly, normal bowel sounds Ext: no gross muscle atrophy, muscle strength 5 out of 5 in all 4 extremities grossly, no contractures, Neuro: CN II-XI grossly intact, light touch intact all 4 extremities, finger to nose within normal limits, Psych: Alert, oriented, appropriate affect Thrombosis Risk Factor Assmnt - Choose All That Apply Each Factor Represents 1 point: Abnormal pulmonary function (COPD) Other Risk Factors: Yes Each Risk Factor Represents 3 Points: Age 75 years or older Other congenital or acquired thrombophilia - If yes, enter type in comment: No Thrombosis Risk Factor Assessment Total Risk Factor Score: 4 Thrombosis Risk Factor Assessment Level: Moderate Risk Assessment and Plan Plan: Acute systolic CHF exacerbation -C/w Lasix 40 mg IVP q12h -Cardiac monitoring, Cardiology consult -Fluid restriction, I/Os, Daily weights -Monitor electrolytes and replace accordingly -C/w Lisinopril Troponin elevation -Likely due to acute CHF exacerbation -Will trend for now Elevated T-bili -Transaminases wnl -Monitor LFTs Thrombocytopenia -Monitor CBC for now Chronic conditions: COPD, HLD -Resume home medications DVT prophylaxis -Heparin The patient is admitted with an anticipated less than 2 midnight stay for evaluation of acute CHF exacerbation. CODE STATUS:Full Code Discussed with: Patient Anticipated discharge date: 11/10/[address]: Home A total of 40 minutes was spent on the care of this complex patient more than 50% of the time was spent in counseling and care coordination.
[2018-11-10] MEDS: HEPARIN SODIUM,PORCINE 5,000 UNIT/ML 1 ML VIAL SQ SCH ×2 (00:49→10:33)
[2018-11-10 06:18] LABS: HCT 44.3 % (39.0-53.0); HGB 13.7 gm/dL (13.0-17.5); MCH 29.6 pg (25.0-35.0); MCHC 30.8 g/dL (31.0-37.0); MCV 95.9 fL (80.0-100.0); Mean Platelet Volume 8.1; Platelet Count 118 k/uL (150-450); RBC 4.62 m/uL (4.30-5.90); RDW 13.6 % (11.5-15.5); WBC 6.6 k/uL (3.8-10.6)
[2018-11-10 06:28] LABS: Albumin 3.5 g/dL (3.5-5.0); Calcium 8.6 mg/dL (8.4-10.2); Magnesium 2.1 mg/dL (1.6-2.3); Potassium 3.8 mmol/L (3.5-5.1); Total Bilirubin 3.5 mg/dL (0.2-1.3); Total Protein 6.3 g/dL (6.3-8.2)
[2018-11-10] MEDS: IPRATROPIUM 0.5 MG/2.5 ML NEBU INHALATION SCH ×3 (07:02→15:02)
[2018-11-10 07:52] VITALS: RESP 18; TEMP 97.5
[2018-11-10] MEDS ORDERED: LISINOPRIL 2.5 MG TAB PO SCH (09:00)
[2018-11-10] MEDS ORDERED: ASPIRIN 81 MG PO SCH (09:00)
[2018-11-10] MEDS ORDERED: SPIRONOLACTONE 25 MG TAB PO SCH (10:00)
--- NOTE | 2018-11-10 10:06 | P.CRDCN ---
History of Present Illness History of present illness: This is a pleasant 83-year-old male past medical history significant for hypertension, COPD, chronic systolic heart failure s/p AICD and non-ischemic cardiomyopathy. He denies coronary artery disease. He follows with Dr. Castellanos out of [place] for cardiology. He states he was just in to see him 2 weeks ago for a routine visit and was doing well. Starting Saturday he was feeling short of breath while getting ready to go to [employer]ain[employer]. He felt like it was his COPD however, he is also non-compliant with his lasix due to frequent urination. He was initially seen at [facility] been given a breathing treatment and some IV Lasix. He immediately started feeling much better. He was discharged from the emergency department. While he was walking back to his car using a walker and trying to get into his vehicle he fell to the ground and was unable to help himself up. Review of records indicate he did have some hypoxia after his fall. The patient states he didn't feel any increasing shortness of breath only that he was extremely cold as it was raining and he was out there for quite awhile unable to get himself up. He had to be readmitted to the emergency department and was sent here for further evaluation related to heart failure. He is seen and examined sitting up at the edge of the bed in no acute distress. He denies any ongoing shortness of breath. He denies ever having had any chest discomfort, palpitations, nausea, vomiting or diaphoresis. Initially at [facility] laboratory data obtained was reviewed and revealed an ENT proBNP of 1080, troponin 0.08 and a chest x-ray with mild interstitial prominence suggestive of vascular congestion. EKG obtained upon arrival reveals ventricular paced rhythm with PVCs. Laboratory data reviewed, WBC 6.6, hemoglobin 13.7, platelets 118, sodium 140, potassium 3.8, creatinine 1.05, GFR 65 and troponin 0.117 and 0.110. Current cardiac medications include aspirin 81 mg daily, atorvastatin 10 mg daily, carvedilol 6.25 mg twice a day, Lasix 40 mg daily and lisinopril 2.5 mg daily. Patient also states he believes he takes Aldactone. Most recent echocardiogram obtained in 2018 reveals impaired LV systolic function with ejection fraction 25-30%, septal wall motion delay consistent with ventricular pacing, inferior hypokinesia, septal hypokinesia, severely enlarged RV, severely dilated LA, moderate to severe MR, moderate to severe TR and moderate pulmonary hypertension with an RVSP of 65 mmHg. At the time of my exam: CONSTITUTIONAL: Denies fever. Denies chills. EYES: Denies blurred vision. Denies vision changes. Denies eye pain. EARS, NOSE, MOUTH & THROAT: Denies headache. Denies sore throat. Denies ear pain. CARDIOVASCULAR: Denies chest pain. Denies shortness of breath. Denies orthopnea. Denies PND. Denies palpitations. RESPIRATORY: Denies cough. GASTROINTESTINAL: Denies abdominal pain. Denies diarrhea. Denies constipation. Denies nausea. Denies vomiting. MUSCULOSKELETAL: Denies myalgias. INTEGUMENTARY: Denies pruitis. Denies rash. NEUROLOGIC: Denies numbness. Denies tingling. Denies weakness. PSYCHIATRIC: Denies anxiety. Denies depression. ENDOCRINE: Denies fatigue. Denies weight change. Denies polydipsia. Denies polyurina. GENITOURINARY: Denies burning, hematuria or urgency with micturation. HEMATOLOGIC: Denies history of anemia. Denies bleeding. Blood pressure 137/77 heart rate 62 afebrile maintaining oxygen saturation on room air GENERAL: This is a 83-year-old male in no apparent distress at the time of my examination. HEENT: Head is atraumatic, normocephalic. Pupils are equal, round. Sclerae anicteric. Conjunctivae are clear. Mucous membranes of the mouth are moist. Neck is supple. There is no jugular venous distention. No carotid bruit is heard. LUNGS: Bibasilar rales, no wheezes or rhonchi. Diminished bilaterally. No chest wall tenderness is noted on palpation or with deep breathing. HEART: Regular rate and rhythm with systolic ejection murmur at the left sternal border, no rubs or gallops. S1 and S2 heard. Distant heart sounds. ABDOMEN: Soft, nontender. Bowel sounds are heard. No organomegaly noted. EXTREMITIES: No evidence of peripheral edema and no calf tenderness noted. VASCULAR: Radial and dorsalis pedis pulses palpated, no evidence of clubbing. NEUROLOGIC: Patient is awake, alert and oriented x3. ASSESSMENT Acute on chronic systolic heart failure, clinically improved. Abnormal troponin, secondary to oxygen supply-demand mismatch. Hypertension Dyslipidemia COPD PLAN Obtain 2D echocardiogram and doppler study to assess cardiac structure and function. Initiate on aldactone 25 mg daily, pt states he already takes this at home. Give dose of IV lasix this morning and then transition to PO 40 mg daily. Increase activity and ambulation in the halls. 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 Lasix compliance discussed. Thank you kindly for this consultation. Nurse Practitioner note has been reviewed, I agree with a documented findings and plan of care. Patient was seen and examined. Past Medical History Past Medical History: COPD, Hyperlipidemia, Hypertension, Osteoarthritis (OA) History of Any Multi-Drug Resistant Organisms: None Reported Past Surgical History: Appendectomy, Hernia Repair, Pacemaker Additional Past Surgical History / Comment(s): lithotripsy Past Anesthesia/Blood Transfusion Reactions: No Reported Reaction Type of Cardiac Device: Permanent Pacemaker Device Placement Date:: 2016 Past Psychological History: No Psychological Hx Reported Smoking Status: Former smoker Past Alcohol Use History: None Reported Past Drug Use History: None Reported Medications and Allergies Home Medications Medication Instructions Recorded Confirmed Type Acetaminophen [Tylenol Arthritis] 650 mg PO HS 01/05/18 11/09/18 History Albuterol Inhaler [Ventolin Hfa 2 puff INHALATION RT-Q6H PRN 01/05/18 11/09/18 History Inhaler] Aspirin EC [Ecotrin Low Dose] 81 mg PO DAILY 01/05/18 11/09/18 History Atorvastatin [Lipitor] 10 mg PO HS 01/05/18 11/09/18 History Carvedilol [Coreg] 6.25 mg PO BID 01/05/18 11/09/18 History HYDROcodone/APAP 7.5-325MG [[place] 1 tab PO Q6HR PRN 01/05/18 11/09/18 History 7.5-325] Tiotropium [place] [Spiriva 1 spray INHALATION RT-DAILY 01/05/18 11/09/18 History Respimat] Furosemide [Lasix] 40 mg PO DAILY #30 tab 01/07/18 11/09/18 Rx Lisinopril [Zestril] 2.5 mg PO DAILY #30 tab 01/07/18 11/09/18 Rx Allergies Allergy/AdvReac Type Severity Reaction Status Date / Time No Known Allergies Allergy Verified 11/09/18 18:45 Physical Exam Vitals: Vital Signs Temp Pulse Pulse Resp BP BP Pulse Ox 11/10/18 07:13 74 11/10/18 07:03 72 11/10/18 07:00 97.5 F L 62 18 137/77 97 11/10/18 04:00 97.9 F 63 16 109/66 97 11/10/18 00:00 97.9 F 62 15 124/72 97 11/09/18 20:10 98.0 F 61 18 121/72 98 11/09/18 20:00 97.5 F L 66 18 117/63 96 11/09/18 18:25 98.2 F 73 18 130/79 98 11/09/18 18:20 20 Intake and Output 11/09/18 11/10/18 11/10/18 22:59 06:59 14:59 Intake Total 120 290 Output Total 1575 200 Balance 120 -1285 -200 Intake: Oral 120 290 Output: Urine 1575 200 Other: Voiding Method Toilet Toilet Urinal Urinal # Voids 2 Weight 88.451 kg Results 11/10/18 06:07 11/10/18 06:07 Cardiac Enzymes 11/10/18 11/10/18 11/10/18 Range/Units 00:46 06:07 06:07 AST 13 L (17-59) U/L Troponin I 0.117 H* 0.110 H* (0.000-0.034) ng/mL CBC 11/10/18 Range/Units 06:07 WBC 6.6 (3.8-10.6) k/uL RBC 4.62 (4.30-5.90) m/uL Hgb 13.7 (13.0-17.5) gm/dL Hct 44.3 (39.0-53.0) % Plt Count 118 L (150-450) k/uL Comprehensive Metabolic Panel 11/10/18 Range/Units 06:07 Sodium 140 (137-145) mmol/L Potassium 3.8 (3.5-5.1) mmol/L Chloride 104 (98-107) mmol/L Carbon Dioxide 30 (22-30) mmol/L BUN 22 H (9-20) mg/dL Creatinine 1.05 (0.66-1.25) mg/dL Glucose 112 H (74-99) mg/dL Calcium 8.6 (8.4-10.2) mg/dL AST 13 L (17-59) U/L ALT 11 L (21-72) U/L Alkaline Phosphatase 80 (38-126) U/L Total Protein 6.3 (6.3-8.2) g/dL Albumin 3.5 (3.5-5.0) g/dL Current Medications Generic Name Dose Route Start Last Admin Trade Name Freq PRN Reason Stop Dose Admin Acetaminophen 650 mg 11/09/18 21:00 11/09/18 22:57 Tylenol Tab PO Not Given HS LUKASZ Hydrocodone Bitart/Acetaminophen 1 each 11/09/18 19:04 [place] 7.5-325 PO Q6HR PRN Pain Albuterol Sulfate 2.5 mg 11/09/18 19:04 Ventolin Nebulized INHALATION RT-Q6H PRN Shortness Of Breath Aspirin 81 mg 11/10/18 09:00 Aspirin PO DAILY LUKASZ Atorvastatin Cal[place] 10 mg 11/09/18 21:00 11/09/18 21:12 Lipitor PO 10 mg HS LUKASZ Administration Carvedilol 6.25 mg 11/09/18 21:00 11/09/18 21:12 Coreg PO 6.25 mg BID LUKASZ Administration Furosemide 40 mg 11/09/18 21:00 11/09/18 21:12 Lasix IV 40 mg Q12H LUKASZ Administration Heparin Sodium (Porcine) 5,000 unit 11/10/18 00:00 11/10/18 00:49 Heparin SQ 5,000 unit Q8HR LUKASZ Administration Ipratropium [place] 0.5 mg 11/10/18 08:00 11/10/18 07:02 Atrovent Nebulized INHALATION 0.5 mg RT-QID LUKASZ Administration Lisinopril 2.5 mg 11/10/18 09:00 Zestril PO DAILY LUKASZ Sodium Chloride 10 ml 11/09/18 21:00 11/09/18 21:13 Saline Flush IV 10 ml BID LUKASZ Administration Intake and Output 11/09/18 11/10/18 11/10/18 22:59 06:59 14:59 Intake Total 120 290 Output Total 1575 200 Balance 120 -1285 -200 Intake: Oral 120 290 Output: Urine 1575 200 Other: Voiding Method Toilet Toilet Urinal Urinal # Voids 2 Weight 88.451 kg 11/10/18 06:07 11/10/18 06:07
[2018-11-10] MEDS: FUROSEMIDE 10 MG/ML 4 ML VIAL IV SCH (10:33)
[2018-11-10] MEDS: CARVEDILOL 6.25 MG TAB PO SCH (10:33)
[2018-11-10 12:01] VITALS: BP 130/75
--- NOTE | 2018-11-10 13:53 | P.DS ---
Providers Date of admission: 11/09/18 19:07 Expected date of discharge: 11/10/18 Attending physician: Woody Dao MD Consults: 11/09/18 19:02 Consult Physician Routine Consulting Provider: [facility] Consult Reason/Comments: CHF Do you want consulting provider notified?: Yes Primary care physician: Zohaib Porter MD Hospital Course: Discharge Diagnosis: Acute systolic CHF, EF 25-30%. Non- compliance Troponin elevation due to CHF exacerbation Elevated T bilirubin-undetermined significance Thrombocytopenia COPD without exacerbation Dyslipidemia Hypertension Hospital Course: Patient is an 83-year-old male with a past medical history of systolic congestive heart failure status post AICD placement, COPD, dyslipidemia, and hypertension who presented to the emergency department as a transfer for [facility]. Patient was initially seen at [facility] and found have an acute exacerbation of CHF. They gave him a dose of Lasix and he was subsequently discharged home. As he was leaving the ER parking lot he developed worsening shortness of breath his legs became weak, and he felt was unable to get back up. It was reported that his lips were blue and he was in respiratory distress. He was subsequently brought back into the emergency department and ultimately transferred here for acute exacerbation of CHF. Review of records from [place] showed a normal hemoglobin, slightly low platelets at 108, slightly elevated troponin at 0.08, and a normal creatinine at 1. His EKG showed a ventricular paced rhythm at a rate of 65. In the ER here he received another dose of Lasix. He was subsequently placed in observation. His Lasix was continued and cardiology was consulted. Cardiology considered the addition of Aldactone however to light the patient was already on this at home. He received 2 additional doses of Lasix after admission. He had rapid improvement in his breathing area and was able to ambulate in hallways without oxygen, without respiratory distress, and his pulse ox remained at 93%. He was subsequently determined stable for discharge home. He regularly follows with Dr. Castellanos for cardiology at back next and Dr. Porter. He states that he does not need any of his medications refilled. He has agreed to have home health care for instructions with medications. Apparently he has been noncompliant secondary to frequent urination with his Lasix. Patient seen and examined at bedside. Feeling much better. Shortness of breath and lower extremity edema better. No chest pain. Wants to go home. Vital signs reviewed and stable. General: non toxic, no distress, appears at stated age Derm: warm, dry Head: atraumatic, normocephalic, symmetric Eyes: EOMI, no lid lag, anicteric sclera Mouth: no lip lesion, mucus membranes moist Cardiovascular: S1S2 reg, no murmur, positive posterior tibial pulse bilateral, Lungs: Decreased breath sounds bilateral bases, no rhonchi, no rales , no accessory muscle use Abdominal: soft, nontender to palpation, no guarding, no appreciable organomegaly Ext: no gross muscle atrophy, no edema, no contractures Neuro: CN II-XI grossly intact, no focal neuro deficits Psych: Alert, oriented, appropriate affect A total of 20 minutes of time were spent preparing this complex discharge s neyaustyn . Pertinent Studies: echo- pending at time of discharge. Patient Condition at Discharge: Stable Plan - Discharge Summary New Discharge Prescriptions: New Spironolactone [Aldactone] 25 mg PO DAILY tab Continue Albuterol Inhaler [Ventolin Hfa Inhaler] 2 puff INHALATION RT-Q6H PRN PRN Reason: Shortness Of Breath HYDROcodone/APAP 7.5-325MG [[place] 7.5-325] 1 tab PO Q6HR PRN PRN Reason: Pain Carvedilol [Coreg] 6.25 mg PO BID Atorvastatin [Lipitor] 10 mg PO HS Aspirin EC [Ecotrin Low Dose] 81 mg PO DAILY Tiotropium [place] [Spiriva Respimat] 1 spray INHALATION RT-DAILY Acetaminophen [Tylenol Arthritis] 650 mg PO HS Furosemide [Lasix] 40 mg PO DAILY #30 tab Lisinopril [Zestril] 2.5 mg PO DAILY #30 tab Discharge Medication List Acetaminophen [Tylenol Arthritis] 650 mg PO HS 01/05/18 [History] Albuterol Inhaler [Ventolin Hfa Inhaler] 2 puff INHALATION RT-Q6H PRN 01/05/18 [History] Aspirin EC [Ecotrin Low Dose] 81 mg PO DAILY 01/05/18 [History] Atorvastatin [Lipitor] 10 mg PO HS 01/05/18 [History] Carvedilol [Coreg] 6.25 mg PO BID 01/05/18 [History] HYDROcodone/APAP 7.5-325MG [[place] 7.5-325] 1 tab PO Q6HR PRN 01/05/18 [History] Tiotropium [place] [Spiriva Respimat] 1 spray INHALATION RT-DAILY 01/05/18 [History] Furosemide [Lasix] 40 mg PO DAILY #30 tab 01/07/18 [Rx] Lisinopril [Zestril] 2.5 mg PO DAILY #30 tab 01/07/18 [Rx] Spironolactone [Aldactone] 25 mg PO DAILY tab 11/10/18 [Rx] Follow up Appointment(s)/Referral(s): [facility], [NON-STAFF] - 1-2 Days Zohaib Porter MD [Primary Care Provider] - 1-2 days Activity/Diet/Wound Care/Special Instructions: 2 gram sodium diet, 1.5 L fluid restriction Activity as tolerated Home health will contact you. 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 Castellanos.
[2018-11-10 15:12] VITALS: PULSE 72
[2018-11-11] MEDS ORDERED: FUROSEMIDE 40 MG TAB PO SCH (09:00)
== END 2018-11-10 16:27 | disposition home health service (06) ==
LOC: EC 18:19 → 1SOBS 19:07
PROVIDERS: ADMIT Internal Medicine; ATTEND Internal Medicine
DX: I11.0 Hypertensive heart disease with heart failure (principal); I50.23 Acute on chronic systolic (congestive) heart failure; I42.9 Cardiomyopathy, unspecified; D69.6 Thrombocytopenia, unspecified; E78.5 Hyperlipidemia, unspecified; Z91.14 Patient's other noncompliance with medication regimen; I27.20 Pulmonary hypertension, unspecified; I08.1 Rheumatic disorders of both mitral and tricuspid valves; I49.3 Ventricular premature depolarization; J44.9 Chronic obstructive pulmonary disease, unspecified; W19.XXXA Unspecified fall, initial encounter; Y93.01 Activity, walking, marching and hiking; Z79.82 Long term (current) use of aspirin; Z79.899 Other long term (current) drug therapy; Z87.891 Personal history of nicotine dependence; Z95.810 Presence of automatic (implantable) cardiac defibrillator
CPT/HCPCS: 96372; 96374; 96376; 99285; 94640 ×2; 93005; 93306; 80053; 83735; 84484; 85027; G0378 ×2; J1644; J1940 ×2